=== PATIENT | male | born 1970 | race African-American/Black ===

== ENCOUNTER 2018-11-08 09:08 | Outpatient (CLI) | payer OTHER ==
[2018-11-08] MEDS ORDERED: ISOVUE-370 76%-LOCM 1 ML ONE (10:30)
--- NOTE | 2018-11-08 11:39 | CT ---
CT ABDOMEN WITH CONTRAST: Date: 11/08/18 HISTORY: R10.12 left lower quadrant pain. R19.4 irregular bowel habits. COMPARISON: CT abdomen and pelvis dated 06/14/16. FINDINGS: Lung bases are clear. No pericardial effusion. Diffuse hepatic steatosis. No acute gallbladder pathology. Spleen is unremarkable. The stomach is unremarkable. Normal contour o f the visualized aorta. The appendix is visualized and is normal. Incidental note is made of a small splenule. Pancreas unremarkable. No peripancreatic fluid. Renal hypodensities are similar suggesting cysts. No retroperitoneal adenopathy. Mild facet arthropathy lower lumbar spine. No acute osseous abnormality. IMPRESSION: 1. No acute abnormality in the abdomen. 2. Diffuse hepatic steatosis. 3. Renal cysts. 4. Normal appendix. POS: [facility]
== END 2018-11-08 09:09 | disposition home or self-care (01) ==
LOC: BICCT 09:08
DX: R10.12 Left upper quadrant pain (principal); R19.4 Change in bowel habit; E11.9 Type 2 diabetes mellitus without complications; K76.0 Fatty (change of) liver, not elsewhere classified; N28.1 Cyst of kidney, acquired
CPT/HCPCS: 74160; Q9966

== ENCOUNTER 2019-11-10 10:05 | Emergency (ER) | payer OTHER ==
[2019-11-10] MEDS ORDERED: Morphine 2 MG/ML SYRINGE ONE (11:44)
[2019-11-10] MEDS ORDERED: Ondansetron PF 4 MG/2 ML Vial ONE (11:45)
[2019-11-10 11:46] LABS: #Basophils 0.1 thou/uL (0.0-0.2); #Eosinphils 0.2 thou/uL (0.0-0.7); #Lymphocytes 3.2 thou/uL (1.20-3.40); #Monocytes 0.8 thou/uL (0.11-0.59); #Neutrophils 6.7 thou/uL (1.40-6.50); %Basophils 0.9 % (0.0-1.0); %Eosinophils 1.7 % (0.0-10.0); %Lymphocytes 29.1 % (21.0-51.0); %Monocytes 7.4 % (0.0-10.0); Hemoglobin 14.6 g/dL (14.0-18.0); Mean Corpuscular HGB CONC 32.2 g/dL (32.0-36.0); Mean Corpuscular Hemoglobin 24.7 pg (27.0-31.0); Mean Corpuscular Volume 76.8 fL (78.0-98.0); Mean Platelet Volume 7.4 fL (7.4-10.4); Platelet Count 259 thou/uL (130-400); RBC Distribution Width 13.4 % (11.5-14.5); Red Blood Cell (RBC) Count 5.91 mill/uL (4.70-6.10)
[2019-11-10 12:07] LABS: ALT (SGPT) 33 U/L (8-55); AST (SGOT) 24 U/L (5-34); Albumin 4.9 g/dL (3.5-5.0); Alkaline Phosphatase 86 U/L (40-110); Anion Gap 12 mmol/L (10-20); BUN (Urea Nitrogen) 11 mg/dL (8.9-20.6); Bilirubin, Total 0.8 mg/dL (0.2-1.2); Calc. Creatinine Clearance 0 mL/min (70-130); Calcium 9.7 mg/dL (7.8-10.44); Carbon Dioxide 29 mmol/L (22-29); Chloride 105 mmol/L (98-107); Estimated GFR-MDRD Greater than 90; Globulin 2.9 g/dL (2.4-3.5); Glucose 123 mg/dL (70-105); Potassium 4.2 mmol/L (3.5-5.1); Protein, Total 7.8 g/dL (6.0-8.3); Sodium 142 mmol/L (136-145)
--- NOTE | 2019-11-10 13:42 | CT ---
CT PELVIS WITH CONTRAST ENHANCEMENT: HISTORY: Abscess to right posterior scrotum. Evaluation for extension. FINDINGS: The appendix is normal. No free fluid is seen within the pelvis. There is soft tissue edema change, w hich appears more along the right side of the scrotum. Superior to the level of the testicle is a low attenuation density collection, which probably represents fluid. This area measures approximately 2. 3 cm in dimension. No air is seen associated with this. No extension into the pelvis. IMPRESSION: Inflammatory change along the right side of the scrotum with a possible fluid density collection supe rior to the right testicle. No air is seen associated with this. Ultrasound may be helpful in further assessment, if indicated. POS: [facility]
[2019-11-10] MEDS ORDERED: Lidocaine 1% (PF) 30 ML VIAL ONE (14:12)
== END 2019-11-10 14:56 | disposition home or self-care (01) ==
LOC: ERS 10:05
DX: N49.2 Inflammatory disorders of scrotum (principal); I10 Essential (primary) hypertension; E11.9 Type 2 diabetes mellitus without complications; Z79.899 Other long term (current) drug therapy; Z79.84 Long term (current) use of oral hypoglycemic drugs
CPT/HCPCS: 36415; 54700; 72193; 80053; 83605; 85025; 86850; 86900; 86901; 96361; 96374; 96375; J2001; J2270; J2405

== ENCOUNTER 2023-08-18 10:41 | Emergency (ER) | payer BC ==
[2023-08-18 11:34] LABS: #Eosinphils 0.1 thou/uL (0.0-0.7); #Monocytes 0.8 thou/uL (0.11-0.59); #Neutrophils 5.9 thou/uL (1.40-6.50); %Basophils 0.3 % (0.0-1.0); %Lymphocytes 26.4 % (21.0-51.0); %Monocytes 8.1 % (0.0-10.0); %Neutrophils 63.9 % (42.0-75.0); Hematocrit 48.6 % (42.0-52.0); Hemoglobin 15.5 g/dL (14.0-18.0); Mean Corpuscular HGB CONC 31.9 g/dL (32.0-36.0); Mean Corpuscular Hemoglobin 24.3 pg (27.0-31.0); Mean Corpuscular Volume 76.3 fl (78.0-98.0); Mean Platelet Volume 8.9 fL (7.4-10.4); Platelet Count 323 10x3/uL (130-400); RBC Distribution Width 15.1 % (11.5-14.5); Red Blood Cell (RBC) Count 6.37 mill/uL (4.70-6.10); White Blood Cell (WBC) Count 9.2 10x3/uL (4.8-10.8)
[2023-08-18 12:01] LABS: ALT (SGPT) 15 U/L (8-55); AST (SGOT) 14 U/L (5-34); Albumin 4.9 g/dL (3.5-5.0); Alkaline Phosphatase 76 U/L (40-110); Anion Gap 14 mmol/L (10-20); BUN (Urea Nitrogen) 14 mg/dL (8.4-25.7); Bilirubin, Total 1.1 mg/dL (0.2-1.2); Calc. Creatinine Clearance 0 mL/min (70-130); Calcium 9.7 mg/dL (7.8-10.44); Carbon Dioxide 26 mmol/L (22-29); Chloride 100 mmol/L (98-107); Estimated GFR 99; Globulin 3.1 g/dL (2.4-3.5); Glucose 96 mg/dL (70-105); Lipase 44 U/L (8-78); Sodium 135 mmol/L (136-145)
[2023-08-18] MEDS ORDERED: Iopamidol-370 76% 500 ML MDV (1 ML CHARGE) ONE (13:49)
== END 2023-08-18 15:05 | disposition home or self-care (01) ==
LOC: ERS 10:41
DX: K59.00 Constipation, unspecified (principal); E11.9 Type 2 diabetes mellitus without complications; I10 Essential (primary) hypertension; Z79.84 Long term (current) use of oral hypoglycemic drugs; Z79.899 Other long term (current) drug therapy
CPT/HCPCS: 74177; 80053; 83605; 83690; 85025; 96360; Q9967

== ENCOUNTER 2023-08-22 14:20 | Outpatient (CLI) | payer BC | END 2023-08-22 14:21 | disposition home or self-care (01) | LOC: BICRAD 14:20 | PROVIDERS: ATTEND Internal Medicine Gastroenterology | DX: K59.00 Constipation, unspecified (principal) | CPT/HCPCS: 74018 ==